=== PATIENT | male | born 1990 | race Caucasian/White ===

== ENCOUNTER 2023-12-07 11:41 | Emergency (ER) | payer OTHER, SELFPAY ==
[2023-12-07 11:56] VITALS: BP 149/95; PULSE 58; RESP 18; TEMP 36.4; O2SAT 100; BMI 22.2
--- NOTE | 2023-12-07 12:10 | CT_ITS ---
[address] [address] Patient Name: ELIER COMBS MRN: [id number] date: 1990 Sex: M Assigned Patient Location: ER Current Patient Location: ED.MAIN Accession/Order Number: [id number] Exam Date: 12/07/2023 12:25 Report Date: 12/07/2023 12:49 At the request of: TREVON DURON Procedure: CT abdomen pelvis wo con EXAM: CT abdomen pelvis wo con HISTORY: kidney stones COMPARISON: None TECHNIQUE: CT abdomen and CT pelvis studies were performed without the use of intravenous contrast. Multiple axial images were obtained. Reformatted coronal and sagittal images were obtained and reviewed. FINDINGS: Abdomen: Visualized lower lung lyles appear grossly unremarkable. Views of the liver and spleen fail to demonstrate evidence of focal mass in either organ. Gallbladder, pancreas and adrenal glands appear grossly unremarkable. Food debris and fluid within the stomach. Mild wall thickening of the distal stomach suggested, consider mild gastritis or gastroenteritis. Correlate to exclude any possibility of early and/or mild gastric outlet obstruction. Bowel loops appear grossly unremarkable. Visualized vascular structures appear grossly intact. No obvious of adenopathy in the retroperitoneum. No obvious renal mass or obstructive uropathy. No evidence of renal or ureteral calculus. Pelvis: No evidence of ureteral or bladder calculus. No evidence of obstructive uropathy. No obvious bladder mass or wall thickening. Prostate gland is grossly within normal limits for size with small associated calcification noted. Mild degree of free intraperitoneal fluid noted posteriorly. Perirectal fat planes appear grossly intact. Bowel loops appear grossly unremarkable. Visualized vascular structures appear grossly intact. No evidence of adenopathy. The appendix is visualized and appears unremarkable in size, no evidence of associated wall thickening. Increased luminal density in the appendix may represent appendicoliths and/or dense feces. No evidence of associated inflammation. No evidence of appendicitis. Bony structures appear grossly intact. CT/CT abdomen pelvis wo con IMPRESSION: CT abdomen and CT pelvis studies demonstrate findings which can be correlated for mild gastritis or gastroenteritis as described. Correlate to exclude any possibility of early and/or mild gastric outlet obstruction. Small amount of free intraperitoneal fluid in the pelvis posteriorly. No evidence of appendicitis. Electronically authenticated by: HERMANN NGUYEN Date: 12/07/2023 12:49
[2023-12-07 12:21] LABS: Basophils Percent Auto 0.3 % (0.2-2.0); Eosinophils Absolute Auto 0.6 10^3/uL (0.0-0.7); Eosinophils Percent Auto 5.6 % (0.9-7.0); Hematocrit 43.8 % (42.0-54.0); Hemoglobin 14.6 g/dL (14.0-18.0); Immature Granulocytes Abs Auto 0.14 10^3/uL (0.00-0.03); Immature Granulocytes Pct Auto 1.4 % (0.0-0.5); Lymphocytes Absolute Auto 2.4 10^3/uL (1.2-3.8); Lymphocytes Percent Auto 23.4 % (20.5-60.0); Mean Corpuscular HGB Conc 33.3 g/dL (29.9-35.2); Mean Platelet Volume 10.8 fL (9.5-13.5); Monocytes Absolute Auto 1.1 10^3/uL (0.3-0.8); Monocytes Percent Auto 11.2 % (1.7-12.0); Neutrophils Absolute Auto 5.9 10^3/uL (1.4-6.5); Neutrophils Percent Auto 58.1 % (43.0-75.0); Platelet Count 430 10^3/uL (150-450); Red Blood Count 4.71 10^6/uL (4.70-6.10); Red Cell Distribution Width 12.7 % (11.0-15.0); White Blood Count 10.1 10^3/uL (4.0-11.0)
[2023-12-07 12:39] LABS: Alanine Aminotransferase 165 U/L (16-63); Albumin Globulin Ratio 0.9; Albumin Level 3.6 g/dL (3.4-5.0); Alkaline Phosphatase 65 U/L (46-116); Anion Gap 12.7; Aspartate Amino Transferase 105 U/L (15-37); BUN Creatinine Ratio 17.6; Bilirubin Total 0.4 mg/dL (0.2-1.0); Calcium 9.2 mg/dL (8.5-10.1); Carbon Dioxide 30.3 mmol/L (21.0-32.0); Chloride 103 mmol/L (98-107); Estimated GFR (African America >60 (>=60); Estimated GFR (Non-African Ame >60 (>=60); Globulin 3.9 g/dL; Glucose 104 mg/dL (74-106); Sodium 142 mmol/L (136-145); Total Protein 7.5 g/dL (6.4-8.2)
[2023-12-07] MEDS: HYDROMORPHONE HCL 1 MG/ML CARTRIDGE IVP (12:46)
[2023-12-07] MEDS: KETOROLAC TROMETHAMINE 30 MG/ML VIAL IVP (12:46)
--- NOTE | 2023-12-07 12:54 | ED.ABDPAIN1 ---
HPI - Abdominal Pain General Chief Complaint: Abdominal Pain Stated Complaint: abdominal pain Time Seen by Provider: 12/07/23 12:09 Source: patient Mode of arrival: walk-in Limitations: no limitations History of Present Illness HPI narrative: patient here complaining of abdominal pain. He says he felt fine yesterday and ate a very large meal last night. He says sometimes he just eats too much. However he slept fine all evening. He woke up this morning was good was having a bolster his started having intense abdominal cramping on the left and the right. Does not have any back or flank pain. He did have a suspicious history of kidney stones. He's not had any problems urinating with hematuria dysuria or urinary frequency and discomfort. The Emergency Room was extremely busy I ordered some laboratory testing on him and some medication including a CT scan. Related Data Allergies Allergy/AdvReac Type Severity Reaction Status Date / Time Iodinated Contrast Media Allergy Unknown Verified 12/07/23 11:56 [facility] Social History Smoking status: Current every day smoker Exam Narrative Exam Narrative: awake alert moving about on the cart appears to be uncomfortable. Is not lying still. He is afebrile. I saw him after the CT scan was complete. His white blood cell count as noted below was essentially normal. On examination abdomen is flat soft supple no guarding rebound rigidity or peritoneal findings. No tenderness at McBurney's point. Lopez's sign is negative. There is no increase in bowel sounds. There is no peritoneal discomfort. Rebound is negative. His lungs are clear and heart sounds were normal. Constitutional Vital Signs, click to edit/add: Last Vital Signs Temp 97.6 F 12/07/23 11:56 Pulse 58 L 12/07/23 11:56 Resp 18 12/07/23 11:56 BP 149/95 H 12/07/23 11:56 Pulse Ox 100 12/07/23 11:56 O2 Del Method Room Air 12/07/23 11:56 Course Vital Signs Vital signs: Vital Signs Temperature 97.6 F 12/07/23 11:56 Pulse Rate 58 L 12/07/23 11:56 Respiratory Rate 18 12/07/23 11:56 Blood Pressure 149/95 H 12/07/23 11:56 Pulse Oximetry 100 12/07/23 11:56 Oxygen Delivery Method Room Air 12/07/23 11:56 Temperature 97.6 F 12/07/23 11:56 Pulse Rate 58 L 12/07/23 11:56 Respiratory Rate 18 12/07/23 11:56 Blood Pressure 149/95 H 12/07/23 11:56 Pulse Oximetry 100 12/07/23 11:56 Oxygen Delivery Method Room Air 12/07/23 11:56 MDM - Abdominal Pain MDM Narrative Medical decision making narrative: CT scan does not show any acute emergency condition but is consistent with gastroenteritis. This consistent with his increased bowel sounds. His temperature is normal, white count normal and I believe this more functional discomfort since he had a normal bowel movement this morning. I will place him on Levsin and clear fluids only for the next forty-eight hours Lab Data Labs: Lab Results 12/07/23 Range/Units 12:08 WBC 10.1 (4.0-11.0) 10^3/uL RBC 4.71 (4.70-6.10) 10^6/uL Hgb 14.6 (14.0-18.0) g/dL Hct 43.8 (42.0-54.0) % MCV 93.0 (80.0-94.0) fL MCH 31.0 (25.9-34.0) pg MCHC 33.3 (29.9-35.2) g/dL RDW 12.7 (11.0-15.0) % Plt Count 430 (150-450) 10^3/uL MPV 10.8 (9.5-13.5) fL Neut % (Auto) 58.1 (43.0-75.0) % Lymph % (Auto) 23.4 (20.5-60.0) % [place] % (Auto) 11.2 (1.7-12.0) % Eos % (Auto) 5.6 (0.9-7.0) % Baso % (Auto) 0.3 (0.2-2.0) % Neut # (Auto) 5.9 (1.4-6.5) 10^3/uL Lymph # (Auto) 2.4 (1.2-3.8) 10^3/uL [place] # (Auto) 1.1 H (0.3-0.8) 10^3/uL Eos # (Auto) 0.6 (0.0-0.7) 10^3/uL Baso # (Auto) 0.0 (0.0-0.1) 10^3/uL Abs Immat Gran (auto) 0.14 H (0.00-0.03) 10^3/uL Imm/Tot Granulo (auto) 1.4 H (0.0-0.5) % Sodium 142 (136-145) mmol/L Potassium 4.0 (3.5-5.1) mmol/L Chloride 103 (98-107) mmol/L Carbon Dioxide 30.3 (21.0-32.0) mmol/L Anion Gap 12.7 BUN 16.0 (7.0-18.0) mg/dL Creatinine 0.91 (0.70-1.30) mg/dL Est GFR ( Amer) >60 (>=60) Est GFR (Non-Af Amer) >60 (>=60) BUN/Creatinine Ratio 17.6 Glucose 104 (74-106) mg/dL Calcium 9.2 (8.5-10.1) mg/dL Total Bilirubin 0.4 (0.2-1.0) mg/dL AST 105 H (15-37) U/L ALT 165 H (16-63) U/L Alkaline Phosphatase 65 (46-116) U/L Total Protein 7.5 (6.4-8.2) g/dL Albumin 3.6 (3.4-5.0) g/dL Globulin 3.9 g/dL Albumin/Globulin Ratio 0.9 Discharge Plan Discharge Chief Complaint: Abdominal Pain Clinical Impression: Abdominal pain Patient Disposition: Home, Self-Care Time of Disposition Decision: 13:08 Additional Instructions: Levsin as needed for discomfort not to exceed four tablets per day/clear fluids for 24-48 hours, then slowly improving diet Stand Alone Forms: Portal Instructions Referrals: Physician,Non-Staff, MD [Primary Care Provider] - 1 week
== END 2023-12-07 13:22 | disposition home or self-care (01) ==
PROVIDERS: Emergency Provider Emergency Medicine Emergency Medical Services
DX: R10.9 Unspecified abdominal pain (principal); F17.210 Nicotine dependence, cigarettes, uncomplicated
CPT/HCPCS: 36415; 74176; 80053; 85025; 96374; 96375; 99284; J1170; J1885

== ENCOUNTER 2023-12-08 04:04 | Emergency (ER) | payer OTHER, SELFPAY ==
[2023-12-08 05:34] VITALS: BMI 22.1
--- OUTSIDE RECORDS SUMMARY | 2023-12-08 05:53 | XMS_ITS | CCD ---
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 [address] [place] [id number] Patient Name: BRAULIO COMBS : 1990 Sex: M Age: Race: White Pt. Location: Patient Status: O Ordered Date: 03/05/2019 1:15:00 PM Completed Date: 04/15/2019 12:39 PM Requesting Provider: ARGENTINA YO Attending Provider: ARGENTINA YO Report Copy To: UNKNOWN, PHYSICIAN Signs & Symptoms: S06.4X0D Epidural hemorrhage w/o loss of consciousness, subs encntr I10 History: Keli TEAGUE [id number] VALID 03/25/19-06/23/2019 [id number] JY PER FAX Comments: follow up EDH, IPH Exam: CT BRAIN WO CONTRAST CT BRAIN WO CONTRAST 04/15/2019 12:39 PM EDT SIGNS AND SYMPTOMS: S06.4X0D Epidural hemorrhage w/o loss of consciousness, subs encntr I10 TECHNOLOGIST COMMENTS: Follow up brain bleed. QUESTION FOR THE RADIOLOGIST: follow up EDH, IPH PROTOCOL: Axial CT images of the head were obtained without IV contrast. TECHNIQUE:Multi-detec tor CT axial slices of the brain were obtained without IV contrast. Helical,sagittal, coronal, and 3-D reconstructions were performed and viewed on a separate workstation. COMPARISON: March 05, 2019 FINDINGS: There is no shift of the midline structures, acute intracranial bleeding, mass effects, or evidence of acute ischemia. The ventricular system is normal in size. The brainstem and the cerebellum are unremarkable. There is interval complete resolution of previously seen right frontotemporal small epidural hematoma seen in the prior study and near complete resolution of the left temporal intraparenchymal hemorrhage with small 5 mm residual focus of hemorrhage seen in the left temporal lobe in axial image 49. The visualized intraorbital contents, the visualized paranasal sinuses, and the infratemporal soft tissues show no acute abnormality. The osseous structures in the skull base and the calvarium show no abnormality apart from the nondisplaced right temporoparietal fissure fracture. IMPRESSION: Right frontotemporal epidural hematoma has resolved. Marked improvement of the left temporal intraparenchymal hemorrhage and tiny 5 mm residual focus of hemorrhage is still visible. Electronically signed by:Luis Alberto Onofre. Transcribed by: [email or web address], User Resident: Electronically Signed by: LUIS ALBERTO ONOFRE @ 04/15/2019 01:58 PM Normal [facility] Comment on above: Order Comment: johanne w up ED, [facility] CT BRAIN WO CONTRASTon 03-05 CT BRAIN WO CONTRAST [facility] Department of Radiology [address] [place] [id number] Patient Name: BRAULIO COMBS : 1990 Sex: M Age: Race: White Pt. Location: [id number] Patient Status: O Ordered Date: 03/05/2019 8:30:00 AM Completed Date: 03/05/2019 08:33 AM Requesting Provider: ARGENTINA YO Attending Provider: JOSH REYNOSO Report Copy To: Signs & Symptoms: Bleed History: Patient history not available Comments: Progression of Known Bleed Exam: CT BRAIN WO CONTRAST CT BRAIN WO CONTRAST 03/05/2019 8:33 AM EDT SIGNS AND SYMPTOMS: Bleed TECHNOLOGIST COMMENTS: s/p fall x 1 day ago dizziness and left frontal headache QUESTION FOR THE RADIOLOGIST: Progression of Known Bleed PROTOCOL: Axial CT images of the head were obtained without IV contrast. TECHNIQUE:Multi-detec tor CT axial slices of the brain were obtained without IV contrast. Helical,sagittal, coronal, and 3-D reconstructions were performed and viewed on a separate workstation. Appropriate CT dose lowering techniques were utilized. COMPARISON: CT head March 04, 2019 FINDINGS: Right temporal frontal epidural hematoma with a maximal width of approximately 7 mm, unchanged. The left temporal intraparenchymal and subarachnoid hemorrhage with surrounding edema, with local mass effect is relatively unchanged. No shift of the midline structures. Right temporal bone nondisplaced fracture. Small focus of intracranial air adjacent to the fracture. IMPRESSION: Right temporo frontal epidural hematoma, stable in appearance. Left temporal intraparenchymal hemorrhage with surrounding edema and local mass effect is relatively unchanged. No shift of the midline structures or large mass effect. Right temporal nondisplaced fracture. Approved by:Mirela Ramos on 03/05/2019 9:35 AM EDT. I, Luis Alberto Onofre, have reviewed the images and report and concur with these findings. Electronically signed by:Luis Alberto Onofre. Transcribed by: [email or web address], User Resident: MIRELA RAMOS Electronically Signed by: LUIS ALBERTO ONOFRE @ 03/05/2019 09:58 AM I personally read this/these film(s) with this resident Normal [facility] Comment on above: Order Comment: Progr ession of Known Bleed History and Physicalon 03-05 History and Physical MR#: [id number] [facility] Pt. Name: Braulio Combs Admitted: 03/04/2019 Date of : 1990 Attending Physician: Josh Reynoso MD Room #: [id number] Discharge Date: HISTORY AND PHYSICAL SERVICE: Trauma Surgery. CHIEF COMPLAINT: Head injury. HISTORY OF PRESENT ILLNESS: This is a 28-year-old male, status post fall from 03/03/2019 at around 5:30 in the morning. The patient states that he had climbed up to the attic via the ceiling staircase and was attempting to raise the staircase trapdoor and fell out of the door onto his head to the concrete basement below. He said he fell about 12 feet, although he does not remember the events. His girlfriend found him on the floor, brought him to bed. He fell asleep until 1 o'clock in the afternoon. After waking up the patient reports feeling unwell and did eventually vomit multiple times. He finally went to the emergency department at an outlying facility at around 2 p.m. on 03/04/2019. After initial workup there, he was found to have a temporal bone fracture on the right side with underlying epidural hematoma/subdural hematoma. He was sent to [facility] for neurosurgical evaluation. The patient currently denies no nausea, vomiting due to recent medication administration. He does report some visual disturbances of his right eye, particularly a whitish halo around the lateral periphery, which has gotten better, but not completely gone away. He denies any other soft tissue injuries including neck, arms, legs, abdominal, chest or back. He has not been able to tolerate much oral intake. He denies any numbness or tingling or weakness. PAST MEDICAL HISTORY: The patient reports episode of previous head injury about a couple of years ago requiring hospitalization, but no surgery. The patient reports a cardiac workup requiring echocardiogram and pulmonary artery catheter placement for supposed pulmonary artery hypertension, which was a never properly confirmed as an official diagnosis and patient claims never needed additional followup. PAST SURGICAL HISTORY: Laceration repair to the right foot from previous injury. SOCIAL HISTORY: Drinks about 5 beers or shots per day, although has not drank in the last 2 days. Active smoker. Occasional pot use. No other illicit drugs. FAMILY HISTORY: Father's side has blood disorder. ALLERGIES: Iodine contrast. MEDICATIONS: None. The patient is supposed to take magnesium for his heart, but does not. REVIEW OF SYSTEMS: As listed above. PHYSICAL EXAMINATION: VITAL SIGNS: Temperature 97.6, heart rate 52, respiratory rate 11, blood pressure 125/76, O2 saturation 99% on room air. GENERAL: Alert and oriented x3, in no acute distress. HEENT: Normocephalic, positive contusion to the right superior temporal region. No obvious laceration or signs of bleeding. Pupils are equally round and reactive to light and accommodation. Extraocular muscles intact. Mucous membranes are dry. Cranial nerves II through XII grossly intact. Positive right-sided hemotympanum. Left side is clear. Dentition intact. NECK: Trachea is midline. No posterior cervical tenderness. No JVD. No cervical crepitus. CARDIAC: Sinus bradycardia with occasional PVCs. Normotensive. PULMONARY: Clear to auscultation bilaterally. Normal work of breathing. GI: Soft, nontender, nondistended. Positive bowel sounds. EXTREMITIES: No extremity deformities or lacerations or bruises. No tenderness to palpation. Appropriate range of motion x4. BACK: No posterior spinal step-offs or tenderness. SKIN: Warm and dry. NEURO: No focal neurological deficits. LABORATORY DATA: Labs were reviewed and grossly normal. IMAGING DATA: CT of the head and neck was done at outlying facility. CT of the neck is grossly negative for traumatic injuries. CT head demonstrates a right temporal skull fracture with an adjacent subdural subarachnoid and epidural hematoma. There is no displacement of the fracture. ASSESSMENT: This is a 28-year-old male, status post fall onto head from 12 feet high also intoxicated at that time. Currently has a right temporal skull fracture with underlying epidural/subdural hematoma. Currently neurologically intact. However, there is associated hemotympanum on the right side and recently complaining of headaches and vomiting. PLAN: Admit with neurosurgical consult. Close neurological checks and possible repeat CT scan. However, 24-hour window of repeat evaluation has passed. We will discuss need for seizure prophylaxis. Keep on antinausea medication and pain control medications as well. PT and OT for functional evaluation. Monitor for signs of Sobia syndrome. Discuss need for ophthalmology or ENT consult. Electronically Signed by: Josh Reynoso MD 03/05/2019 11:26 A Josh Reynoso MD I personally saw this patient on the day of the encounter, performed the ly portion(s) of the service and participated in the management and confirm the resident's documentation. Please note there may be an additional personal documentation from me. Date Dict: 03/04/2019/09:04 P/Joaquina Leigh MD Date Trans: 03/05/2019 05:24 A/durga [id number] Normal [facility] BASIC METABOLIC PANELon 04-0 Calcium [Mass/Vol] 9.7 mg/dL Normal 8.6-10.3 [facility] Comment on above: Order Comment: if no t done in ED No: Do not add to previous draw Performed By: #### 0 0071, [id number] #### [facility] [address] [place] [address], [place] Chloride [Moles/Vol] 96 mmol/L Low 98-107 [facility] Comment on above: Order Comment: if no t done in ED No: Do not add to previous draw Performed By: #### 0 0071, [id number] #### [facility] [address] [place] [address], [place] CO2 [Moles/Vol] 30 mmol/L Normal 21-31 [facility] Comment on above: Order Comment: if no t done in ED No: Do not add to previous draw Performed By: #### 0 0071, [id number] #### [facility] [address] [place] [address], [place] Creatinine [Mass/Vol] 0.93 mg/dL Normal 0.70-1.30 [facility] Comment on above: Order Comment: if no t done in ED No: Do not add to previous draw Performed By: #### 0 0071, [id number] #### [facility] [address] [place] [address], [place] GFR/1.73 sq M predicted among blacks MDRD (S/P/Bld) [Vol rate/Area] mL/min/{1.73_m2} Normal >60 [facility] Comment on above: Order Comment: if no t done in ED No: Do not add to previous draw Performed By: #### 0 0071, [id number] #### [facility] [address] [place] [address], [place] GFR/1.73 sq M predicted among non-blacks MDRD (S/P/Bld) [Vol rate/Area] mL/min/{1.73_m2} Normal >60 [facility] Comment on above: Order Comment: if no t done in ED No: Do not add to previous draw Performed By: #### 0 0071, [id number] #### [facility] [address] [place] [address], [facility] Glucose [Mass/Vol] 106 mg/dL High 70-100 [facility] Comment on above: Order Comment: if no t done in ED No: Do not add to previous draw Performed By: #### 0 0071, [id number] #### [facility] [address] [place] [address], [place] Potassium [Moles/Vol] 4.5 mmol/L Normal 3.5-5.1 [facility] Comment on above: Order Comment: if no t done in ED No: Do not add to previous draw Performed By: #### 0 0071, [id number] #### [facility] [address] [place] [address], [facility] Sodium [Moles/Vol] 134 mmol/L Low 136-145 [facility] Comment on above: Order Comment: if no t done in ED No: Do not add to previous draw Performed By: #### 0 0071, 96035 #### [facility] [address] [place] [address], [facility] Urea nitrogen [Mass/Vol] 18 mg/dL Normal 7-25 [facility] Comment on above: Order Comment: if no t done in ED No: Do not add to previous draw Performed By: #### 0 0071, 15249 #### [facility] [address] [place] [address], [facility] CBC COMPLETE BLOOD COUNTon 0 - Erythrocyte distribution width (RBC) [Ratio] 14.1 % Normal 11.5-15.0 [facility] Comment on above: Order Comment: if no t done in ED No: Do not add to previous draw Performed By: #### 5 0608 #### [facility] [address] [place] [address], [facility] Hematocrit (Bld) [Volume fraction] 43.2 % Normal 39.0-50.0 [facility] Comment on above: Order Comment: if no t done in ED No: Do not add to previous draw Performed By: #### 5 0608 #### [facility] [address] [place] [address], [facility] Hemoglobin (Bld) [Mass/Vol] 15.1 g/dL Normal 13.0-17.0 [facility] Comment on above: Order Comment: if no t done in ED No: Do not add to previous draw Performed By: #### 5 0608 #### [facility] [address] [place] [address], [facility] MCH (RBC) [Entitic mass] 32.4 pg Normal 27.0-33.0 [facility] Comment on above: Order Comment: if no t done in ED No: Do not add to previous draw Performed By: #### 5 0608 #### [facility] [address] [place] [address], [facility] MCHC (RBC) [Mass/Vol] 35.0 g/dL Normal 32.0-35.0 [facility] Comment on above: Order Comment: if no t done in ED No: Do not add to previous draw Performed By: #### 5 0608 #### [facility] [address] [facility] [place] [address], [facility] MCV (RBC) [Entitic vol] 92.7 fL Normal 82.0-98.0 [facility] Comment on above: Order Comment: if no t done in ED No: Do not add to previous draw Performed By: #### 5 0608 #### [facility] [address] [place] [address], [facility] Nucleated RBC/100 WBC (Bld) [Ratio] 0 % Normal 0-0 [facility] Comment on above: Order Comment: if no t done in ED No: Do not add to previous draw Performed By: #### 5 0608 #### [facility] [address] [place] [address], [facility] PLAT CNT 364 10*3/uL Normal 150-[address] [facility] Comment on above: Order Comment: if no t done in ED No: Do not add to previous draw Performed By: #### 5 0608 #### [facility] [address] [place] [address], [facility] RBC (Bld) [#/Vol] 4.66 10*6/uL Normal 4.20-5.70 [facility] Comment on above: Order Comment: if no t done in ED No: Do not add to previous draw Performed By: #### 5 0608 #### [facility] [address] [place] [address], [facility] WBC (Bld) [#/Vol] 9.76 10*3/uL Normal 4.00-10.60 [facility] Comment on above: Order Comment: if no t done in ED No: Do not add to previous draw Performed By: #### 5 0608 #### [facility] [address] MAGNESIUM BLOODon 03-04-2019 Magnesium [Mass/Vol] 2.4 mg/dL Normal 1.9-2.7 [facility] Comment on above: Order Comment: if no t done in ED No: Do not add to previous draw Performed By: #### 0 0071, [id number] #### [facility] [address] Encounters Encounter Date Encounter Type Care Provider Facility Start: 02-22-2023 End: 02-22-[address] NONE LISTED REQUEST Facility: Start: 03-04-2019 End: 03-06-2019 Evaluation and management of inpatient REFERRED SELF Facility:[facility] Payers Date Payer Category Payer Unknown [id number] 1990 Unknown [id number] 1961 Medicaid [id number] Summary Purpose Family History No Family History Records FoundNo Family History Records FoundNo Family History Records Found Advance Directives No Advanced Directives Records FoundNo Advanced Directives Records FoundNo Advanced Directives Records Found Hospital Course Note MR#: [id number] [facility] Pt. Name: Braulio Combs Admitted: 03/04/2019 Discharged: 03/06/2019 Date of : 1990 Physician: Josh Reynoso MD DISCHARGE SUMMARY DISCHARGE ATTENDING: Josh Reynoso M.D. PRINCIPAL DIAGNOSIS: Right temporal fracture and intraparenchymal hemorrhage status post fall. SECONDARY DIAGNOSIS: Included prior history of concussion. SUMMARY OF HOSPITAL COURSE: The patient is a 28-year-old male who came in as a trauma consult. He had a fall from an attic at his home on Sunday evening. He was attempting to close the attic door and ended up falling through onto his head. He decided to stay home until around 1 p.m. in the afternoon on Sunday and was seen in [facility] due to a severe headache. At [facility], he had a 3D CT C-spine without contrast and also a CT brain without contrast and was thus transferred to [facility] for higher level of care. Upon admission to [facility], he had a repeat CT brain without contrast and wa (more content not included)... Additional Source Comments (unrecognized sect ion and content) No Status Records FoundNo Status Records FoundNo Status Records Found INFORMATION SOURCE (unrecogn ized section and content) DATE CREATED AUTHOR 07/31/2019 [facility] DATE CREATED AUTHOR AUTHOR'S ORGANIZ ATION 07/15/2021 [facility] DATE CREATED AUTHOR AUTHOR'S ORGANIZ ATION 02/27/2023 [facility] FOR RECORDS PERTAINING TO PATIENTS WHO ARE OR HAVE BEEN ENROLLED IN A CHEMICAL DEPENDENCY/SUBSTANCEABUSE PROGRAM, SOME INFORMATION MAY BE OMITTED. This clinical summary was aggregated from multiple sources. Caution should be exercised in using it in the provision of clinical care. This summary normalizes information from multiple sources, and as a consequence, information in this document may materially change the coding, format and clinical context of patient data. In addition, data may be omitted in some cases. CLINICAL DECISIONS SHOULD BE BASED ON THE PRIMARY CLINICAL RECORDS. [facility]. provides no warranty or guarantee of the accuracy or completeness of information in this document.
[2023-12-08 05:58] LABS: Anion Gap 14.8; Chloride 99 mmol/L (98-107); Glucose 107 mg/dL (74-106); Potassium 3.8 mmol/L (3.5-5.1); Sodium 139 mmol/L (136-145)
[2023-12-08 05:59] LABS: Alanine Aminotransferase 119 U/L (16-63); Albumin Globulin Ratio 0.9; Albumin Level 3.7 g/dL (3.4-5.0); Alkaline Phosphatase 71 U/L (46-116); Aspartate Amino Transferase 40 U/L (15-37); Bilirubin Direct 0.1 mg/dL (0.0-0.2); Bilirubin Total 0.6 mg/dL (0.2-1.0); Calcium 9.4 mg/dL (8.5-10.1); Estimated GFR (African America >60 (>=60); Estimated GFR (Non-African Ame >60 (>=60); Total Protein 7.7 g/dL (6.4-8.2)
[2023-12-08 06:00] LABS: Hematocrit 44.8 % (42.0-54.0); Mean Corpuscular HGB Conc 33.5 g/dL (29.9-35.2); Mean Corpuscular Hemoglobin 31.3 pg (25.9-34.0); Mean Corpuscular Volume 93.5 fL (80.0-94.0); Mean Platelet Volume 10.8 fL (9.5-13.5); Platelet Count 445 10^3/uL (150-450); Red Blood Count 4.79 10^6/uL (4.70-6.10); Red Cell Distribution Width 12.7 % (11.0-15.0); White Blood Count 13.5 10^3/uL (4.0-11.0)
[2023-12-08 06:02] LABS: Neutrophils Percent Auto 66.9 % (43.0-75.0)
[2023-12-08 06:03] LABS: Basophils Percent Auto 0.1 % (0.2-2.0); Eosinophils Absolute Auto 0.6 10^3/uL (0.0-0.7); Eosinophils Percent Auto 4.3 % (0.9-7.0); Lymphocytes Absolute Auto 2.5 10^3/uL (1.2-3.8); Lymphocytes Percent Auto 18.2 % (20.5-60.0); Monocytes Absolute Auto 1.3 10^3/uL (0.3-0.8); Monocytes Percent Auto 9.5 % (1.7-12.0)
[2023-12-08 06:04] LABS: Immature Granulocytes Abs Auto 0.13 10^3/uL (0.00-0.03)
== END 2023-12-08 06:06 | disposition home or self-care (01) ==
LOC: ER 05:52
PROVIDERS: Emergency Provider Internal Medicine
DX: K52.9 Noninfective gastroenteritis and colitis, unspecified (principal); K29.70 Gastritis, unspecified, without bleeding; F17.210 Nicotine dependence, cigarettes, uncomplicated
CPT/HCPCS: 36415; 80048; 80076; 83690; 85025; 96361; 96374; 96375; 99284; J1200

== ENCOUNTER 2023-12-08 08:22 | Emergency (ER) | payer OTHER, SELFPAY ==
[2023-12-08 08:26] VITALS: BP 153/105; PULSE 86; RESP 18; TEMP 36.9; O2SAT 99; BMI 22.2
--- OUTSIDE RECORDS SUMMARY | 2023-12-08 08:34 | XMS_ITS | CCD ---
Author Name Unknown Address [address] [place] [address] [facility] [address] [place] [address] Organization [facility] Care Team Providers Care Emergency Physician Name Role Phone SELF, REFERRED Referring Unavailable SELF, REFERRED Primary Care Unavailable JOSH REYNOSO Attending Unavailable JOSH REYNOSO Admitting Unavailable REQUEST, DR CABRERA LISTED Primary Care Unavaila ble DIAB ., SOTO Admitting Unavailable DIAB .SOTO Attending Unavailable DIAB ., SOTO Consulting Unavailable Allergies Allergy Classification Reported Allergen(s) Allergy Type Date of Onset Reaction(s) Facility (2 sources) Iodinated Contrast- Oral and IV Dye Drug allergy (disorder) 03-04-2019 [facility] Repository Problems Active Problems Problem Classification Problem [...] NEGATIVE FOR GROUP A STREPTOCOCCUS. Normal [facility] Comment on above: Performed By: #### S SCRN GRASTCX #### [facility] Laboratory [address] [place], [place] [address] Dr. Mary Marks STREPT SCREENon 02-22-2023 STREP SCREEN A Negative Normal NEGATIVE [facility] Comment on above: Performed By: #### S SCRAbiel, GRASTCX #### [facility] [address] [place] [address] Dr. Mary Marks Coding Summary.on 07-14-2021 Coding Summary. CD:[id number] G h0bWw+PGhlYWQ+BU1VJHQ dN98ibJJoeH0FN2eBKB5K BPXQWOQQCU2IVH9bbUU4W RajT2AzchFc BkrnkNYgJH75IOk4TXY7e IrkMIgobG0uhQGsP9p8Pv LaNY80iI09TFdxTDQsPpP 3LjZpbjsgbWFy K1avKlWyiHRhWvy+PHRhY mxlIHdpZHRoPScxMDAlJy ZqxAfsGY3zYd3vLFXeNLT vbGxhcHNlOiBj n8zjUFMvGYkeOF6lyHhrV 2JkbKU7FCPvd7b6Rd42nM I+FLDbQZR0dZjrFBsex47 5IfMnl6jbAQH1 rNOeLVssMGO4T52ja6V3L IJyODXdSPU0iUA6vN4vwF jjgcbiU8EwoOEmLbG8JTJ 5sGUjoS3ciUfe nntxwC6lXrz+F56ANZ9QI VBPDB8TEre4P9MfRvrvuT I+OQ91SVOcZM90eKKxsEF ua5ywkPh1YnHc OEBiBYW4mAgnQNcmq4OcJ IQsB08wvVEhp7Z0AKPvzT bfyELlAePhjNK6pM7dXWi wuyxou4kjnxnk Fyphn0nrfc30mH11C68zC OnjCFOvOKO3PQEuLKMrkA zfmk5zwC9jAg0+WUfqh1r pp7akbBf1EpCc JKLcnbUkoGicQYI1o6SwE q29K8MdsLmiw3PrTju5ef 31pVCqi7N2vHV1WMajJAL vmJ3fZLmmGfY9 DYBhEaShwC69rLTsERjwB p3taZaicVjwOZ4iZPBxqu riMJYhzQ7bJXYdsKGkdCq hSI1eOATtsqav h201QrLoTEP0VLAmrSTpP 1IywU3pJeNkBCRcAFKeX0 TgnERuIIisM814FPbaDyO 5PBEayjTcZ7Nh OCJvjZntMhF4h5G1To4Gf 7ZnmfyyLTU4UJndVNA4Zd C0PvPwHjW1Z2RqOpb2ETD ccGuzMC1vF6Az PSSpneycyoiixRZ3QSRnV FDjgZ91uUZlUFmuCm8un0 B8r839XLXyISLncF01Gm1 udDogMTBwdCBU tP1qgpkfi3ijxtnvOfYcU BIeSOz4VQd8KRRknOkyHn LoXRG7YsY1NNE9yKIbzC6 skDihcqhlwV5y Oyc+A11npH1rTFF5MSS7i mdrIAQokdJfPO59QS79W6 RyPjwvdGFibGU+PGRpdiB rgMfsDD1nSaPy w7iuu6PnLFmfO8JwSRNmR WawUst5GLSpPFU2sOP9sH 4mWINfFTsnw4R1oXI2I0L eqmTdro0ft6ko EEIxVQluS20uaAHxz1C5R VLtaVH0YAVmuGayNePsqG 93Oyc+RZKgvDyar3ArXyu xn2rhf6wcqZi3 XaNsCHLhnrGarExbASA6r 0MoHj45X02hKVcsUOPfZK KfRDGyVJShmSbitm8rdV5 wIi8+PGNvbCB3 jAL0kH9kQTFfEmA2UKcyY 135UuHxsZZeZydyz0vwx0 ssbHv5DoUtQSVqsaGeeCm wITB6b7SgYw55 V78sLTrmCOZdRWEjJLXrY PZvaHyesd5ukA0hPc8+PC 2qv3twdv29kI92nYE+PHR iRAI5nCeuWAbs FFPmfD5bHOjvXlO5YIBzZ sLopS05kOSpMRtyGj3wjW cgrUtzIX3uABUfzthkn59 3KvOfr6gmIXLo hXGiXWlqFQH5P63dv4B6C GRoQAElKYM4iDB1qX7krJ lnbjogbGVmdDsgdmVydGl xYIogCYxoV769 IHRvcDsnPlBhdGllbnQgT sBaGCb5K0AcFna7CQCujO shAZ2ueXNoBBwmVx3pxIp cxMmdPD4aLFQr svtyc409WwKxp0kbDFSci BYoORirVUM4A29bn4S4MV YpHLZdKVS6rFR1bX8psOx nbjogbGVmdDsg dlZdcAtuQImaBXhdX702Q HRvcDsnPkJpcnRoIERhdG X6CK92OS77kVDbu9V1eZW 1W8NvSELcfwts svacqRI8KRRdRXKovH30H c0jgOtrNd8iQOHjMET5QG DbgBLdZ1CurR6vLoNeDVE rCVZcD3FqxFFj FXgcQ281FEtuKmY5CDYbm qGeC2OlMAWnmUwlEkR5l3 V1Tj4MX6X3KS77GY45pYR qy8O6hCZ8F9Ac MADnslbqopyssJB0SJLlN INuiH04Xf3fbDwiIc5lPU IgRLU9KENcvEPfP0XpgE5 yOiAjMDAwMDAw X2XkrKNvAQhuT695PNcbS hM3XUGojnBgZ7CtVXAxeM nnKkH8r3N6Ef3XDOx6EF5 8LQ36tHPye8F9 mUI4N7GfAJEtrksnfhfpf BZ4QJKbZLLjgO30Gs9plG ymTh1bMWOyGIG2MKHzgQS yK1UodL8fXsFx VIAoHENmH5QjeCMlIVeeC 818XJpnIhY4SKEszpDzI7 PqFRQatVhvEtL4a6E7Th2 RAXXpFN42ZOD4 cPK6CP82WF23L3WhBnize GFibGU+PHRhYmxlIHdpZH RoPScxMDAlJyBzdHlsZT0 aYm9pUKQrDOXu gXeqyYQmJzPrf2lqKCBwT FtiOQ9hvTdmJ9InyHW3XT Ceg1n7Ud14L14aM0DisUS +GKDczSU5wGM0 qP9rMuUiGkG2AZycN035K wIaqJLqAttys6zcj3xpiE w8PgC8MGHoxfBbpBfgCIA 2p8YdBj42O50g IHdpZHRoPSIxNSUiIHZhb Pxfuj4ddY8fRs7+PGNvbC H5rGS3hS4zHmNhUmB5XCj bC508GoLhtFVg Yqgva4ibj1iqjIy2TvEfN KXyrgLucOlkZAY6r4TlMy 31V5CbhImfy9RaUwp2oz6 8pLZsl7I6rCS6 U9QcKDEwuyuboYViePjdD X3mAOTojtjkZWAycD3gCY AdH3y9YaOlVwM5ESpzG9H iplS0EYLruJNe UJzcKJF1E75ov6T7XAJxA PMsRGO9oRL4oF7tgJpotc ogbGVmdDsgdmVydGljYWw hFZayS087WOUq lZakYZDhcV7aWATxbXRni ZjfXR6pTBSqcbocXzZYT4 nMXvfcVpUITN5JYPfaPYo vdGQ+PHRkIHN0 tUmsFMnvDABplM8nHKTyD 1e5ByErLvU5NDboP8NqYF DlelovZt51tS4vKtKjJbQ 3XAyoP4IcwtI0 CXHsjTXeKTezPNO7X12ly 3Q0CUNtMGFbEUK5nQD5lN 1hbGlnbjogbGVmdDsgdmV ydGljYWwtYWxp J138PRKavVzzNsV5MtJbR yU3LNx8N3OmVxd4NQCvbO kvIH5lnJGbAIvfVb8kdVi htValEH4qBDUs hppaUMWyxZ0yQXJlwDPmr ZjtZB3eNVOksinme729Al RwXQN3QPMxmXMaY5BvhB8 yOiAjMDAwMDAw Y8HjyVXkGZmjY981PCifA aG0IYOcoaRzZ3HbCAMddO biQmJ9q4Q1Yz4lIiBCGJB yczwvdGQ+PHRk ZNS0rXwaQEjdVCLnfP0zF CWoP7o0SrDjXbJ0WOrjA9 WyNKUkjqdoRk01jL5dNyC aNmT1BYstY4Kn fdB4MSIccSIvOHajEOU9Z 91sz8D2SQTzUKJmKHY9qY E9bW3mwWbibmvkmIXzdJj gdmVydGljYWwt ZVsmD630CZYgyQoiKp3iv XB8O0UtHvm6BUQbfHsdYA 8juYXlEZgmGj5syYezxHk lAY3nBIOvscsq DGGwkD5vWEZdmTAgvNesB M6dQFUjwikne256TqBjBR E8QDVtsWAuD9WjeN6dVuI lZLJuYRHhB4Cw cJPeVThaD151VPaiSvQ9A UCvtrVkC3UcGKYfxUqdUt R4s9P0As9QtRKoX7OoI6e 0G8XhNwubyME+ NW45BNXpHY17xAEraCNdj 6jhwXq7ByGgCRAfURX1xA grKXahi0RyXPYrZ47hdSQ uw4O5OWXljRvx eYMwCbZddMR6gH4sEWkqn ejmm3cmrxcrRipms0gmdb 00zW79T20yPFwsCACcWJU zMCUiIHZhbGln ed9oiP1uXw6+CFKpcXR9a YR1gF9sDxMiSxK9ARkfG0 95OdAdkFJcZhwxe1ohl7k xnOp6PmWxWEDj xkDtpReqOLK1v5AuMj81K 29sIHdpZHRoPSIyMCUiIH EmvQioja4gnV0pNe2+PC9 da5demx37sL43 dHI+KMZdXWX2eRkhIZlfI GNioO6uNZjtCwT3TGIjNl IgbG04pHVzYIjfZg6soEn aiNfeES8hZNNb sowbi564IyMzk6neARMmn BPiOHlrXUA4L87pk6D9OR IiLRDkFPH4dKB9uF4zyDh nbjogbGVmdDsg gyEmiMgoJEogVOqcO585U PDdjKxfMsIjbOOgN7jndu PYPH5sGjqghBX+PHRkIHN 0eWxlPSdwYWRk eZ4tOKCbH4p1DuFeOoI7A KzbL4FehnL4EUMbjXRoWL HqbDSAcF0efedpp7lxjzl gIzAwMDAwMDt0 BRa2AKImfHroNiVfKZP5Q zM1HYK5uWQbyS8dtIyias dwaS9pKjs+RklOOjwvdGQ +JCSuXXH7dEir BRicQSJprN6pEAXzJ4c0Z vVbQeD2WTxdK8VtbcT2CR FfdYWlGAXrnREIeN6kihp dv1mygbknPvYf LXScTMk1TXp1EGCinYdrY wIpJDY1OjF0MVZ0rAMsnY 2dyJpybqmifM5bMuv+TVJ OOjwvdGQ+PHRk KLM5iHssGEvdRUJbxZ0fL CSpI5h9GpYkNqC5ZAkkY0 MnuuA6WXGeiYLjITQzqMQ RhV1trvojt4vp mxjfDsHtMOPqZNj8EXt5S YWqeYocCyMySZM1OzT9BT N3tMNqiN5kuVrpnzzzlT2 wOyc+DQK8TWZ2 LS45RX05S3JyTkvfsRCwz +PHRhYmxlIHdpZHRoPS dfPUYhVoKzuFkcAI4nHf8 yZGVyLWNvbGxh cHNl (more content not included)... Normal [facility] CT Maxillofacial w/o Contras ton 07-08-2021 CT [...] DO Transcribed by: PAULA Technologist: ANDERSON Normal [facility] Consent for Treatmenton 06-26 Consent for Treatment [id number] .00CD:127 [facility] Discharge Instructionson Discharge Instructions [id number] .00CD:127 Normal [facility] ED Clinical Summaryon 2020 ED Clinical Summary [address] [address] ED Clinical Summary Person Information Name: BRAULIO COMBS Shayla/[facility] Age: 30 Years : 1990 Sex: Male Language: Kittitian PCP: Al Haines MD Marital Status: Single [...] 07/08/2021 01:45:27 07/08/2021 01:45:27 07/08/2021 01:45:27 ADDRESS: [address] [place] [id number] PHYS DOC NOTES: MEDICAL INFORMATION: Prescriptions Given: New Medications Printed Prescriptions amoxicillin-clavulana te (Augmentin 875 mg-125 mg Tab) 1 Tablets By Mouth every 12 hours for 10 Days. Refills: 0. PATIENT EDUCATION INFORMATION: Instructions: Facial Laceration Follow up: With: Address: When: Al Haines [address] [place] [address], [facility] [place] [address] Business (1) In 3 days 07/11/2021 Comments: have wound rechecked in 2-3 days and stitches removed in 5-6 days DIAGNOSIS: 1:Facial laceration; 2:Facial contusion Normal [facility] ED Note-Nursingon 07-08-2021 ED Note-Nursing Pt out of room for imaging. Normal [facility] ED Note-Physicianon 07-08-20 ED Note-Physician Basic Information [...] Diagnostic Results No qualifying data available. Normal [facility] Comment on above: Result Comment: Elec tronically [...] Pus or a bad smell. ? Take dqjp-mek-puovunz and prescription medicines only as told by your health care provider. ? If you were prescribed an antibiotic, take or apply it as told by your health care provider. Do not stop using the antibiotic even if your condition improves. ? After the laceration has healed: ? Know mary jo (more content not included)... Normal [facility] ED Patient Summaryon 021 ED Patient Summary [address] [address] Patient Discharge Instructions Person Information Name: GARRETBRAULIO FELIZ Elizabeth Age: 30 Years Arrival Date: 07/07/2021 23:27:57 Discharge Diagnosis: 1:Facial laceration; 2:Facial contusion Primary Care Physician: Al Haines MD Provider Information Primary Provider: Ernesto Abrams MD [employer] Mechanic:None The exam and treatment you received in the Emergency Department were for an urgent problem and are not intended as complete care. It is important that you follow up with a doctor, nurse practitioner, or physician?s psychiatric assistant for ongoing care. If your symptoms become worse or you do not improve as expected and you are unable to reach your usual health care provider, you should return to the Emergency Department. We are available 24 hours a day. BRAULIO COMBS has been given the following list of patient education materials, prescriptions and follow-up instructions: Follow-up Instructions: With: Address: When: Al Haines [facility], [place] [address] Business (1) In 3 days [...] opioids can be used to help relieve epfssdvm-to-ewubly pain and are often prescribed following a [...] be struggling with addiction, tell your health manager care management and ask fo (more content not included)... Normal [facility] ED Traumaon 07-08-2021 ED Trauma [id number] 1.00CD:127 Normal [facility] RAD - Preliminary Cat Scan R eporton 07-08-2021 RAD - Preliminary Cat Scan Report [id number] .00CD:127 Normal [facility] CT BRAIN WO CONTRASTon 04-15 CT BRAIN WO CONTRAST [facility] Department of Radiology [address] [place] [id number] Patient Name: BRAULIO COMBS : 1990 Sex: M Age: Race: White Pt. Location: Patient Status: O Ordered Date: 03/05/2019 1:15:00 PM Completed Date: 04/15/2019 12:39 PM Requesting Provider: ARGENTINA YO Attending Provider: ARGENTINA YO Report Copy To: UNKNOWN, PHYSICIAN Signs & Symptoms: S06.4X0D Epidural hemorrhage w/o loss of consciousness, subs encntr I10 History: Keli TEAGUE [phone] VALID 03/25/19-06/23/2019 [id number] JY PER FAX Comments: follow up EDH, [...] Electronically signed by:Luis Alberto Onofre. Transcribed by: [email or web address], User Resident: Electronically Signed by: LUIS ALBERTO ONOFRE @ 04/15/2019 01:58 PM Normal [facility] Comment on above: Order Comment: johanne w up ED, [facility] CT BRAIN WO CONTRASTon 03-05 CT BRAIN WO CONTRAST [facility] Department of Radiology [address] [place] [id number] Patient Name: BRAULIO COMBS : 1990 Sex: M Age: Race: White Pt. Location: [id number] Patient Status: O Ordered Date: 03/05/2019 8:30:00 [...] Electronically signed by:Luis Alberto Onofre. Transcribed by: [email or web address], User Resident: MIRELA RAMOS Electronically Signed by: LUIS ALBERTO ONOFRE @ 03/05/2019 09:58 AM I personally read this/these film(s) with this resident Normal [facility] Comment on above: Order Comment: Progr ession of Known Bleed History and Physicalon 03-05 History and Physical MR#: [id number] [facility] Pt. Name: Braulio Combs Admitted: 03/04/2019 Date of : 1990 Attending Physician: Josh Reynoso MD Room #: [id number] Discharge Date: HISTORY AND PHYSICAL SERVICE: Trauma [...] epidural hematoma/subdural hematoma. He was sent to [facility] for neurosurgical evaluation. The patient currently denies [...] Leigh MD Date Trans: 03/05/2019 05:24 A/durga [id number] Normal [facility] BASIC METABOLIC PANELon 04-0 Calcium [Mass/Vol] 9.7 mg/dL Normal 8.6-10.3 [facility] Comment on above: Order Comment: if no t done in ED No: Do not add to previous draw Performed By: #### 0 0071, 81154 #### [facility] [address] [place] [address], [place] Chloride [Moles/Vol] 96 mmol/L Low 98-107 [facility] Comment on above: Order Comment: if no t done in ED No: Do not add to previous draw Performed By: #### 0 0071, 61768 #### [facility] [address] [place] [address], [place] CO2 [Moles/Vol] 30 mmol/L Normal 21-31 [facility] Comment on above: Order Comment: if no t done in ED No: Do not add to previous draw Performed By: #### 0 0071, 95549 #### [facility] [address] [place] [address], [place] Creatinine [Mass/Vol] 0.93 mg/dL Normal 0.70-1.30 [facility] Comment on above: Order Comment: if no t done in ED No: Do not add to previous draw Performed By: #### 0 0071, 94984 #### [facility] [address] [place] [address], [place] GFR/1.73 sq M predicted among blacks MDRD (S/P/Bld) [Vol rate/Area] mL/min/{1.73_m2} Normal >60 [facility] Comment on above: Order Comment: if no t done in ED No: Do not add to previous draw Performed By: #### 0 0071, 12528 #### [facility] [address] [place] [address], [place] GFR/1.73 sq M predicted among non-blacks MDRD (S/P/Bld) [Vol rate/Area] mL/min/{1.73_m2} Normal >60 [facility] Comment on above: Order Comment: if no t done in ED No: Do not add to previous draw Performed By: #### 0 0071, 95333 #### [facility] [address] [place] [address], [facility] Glucose [Mass/Vol] 106 mg/dL High 70-100 [facility] Comment on above: Order Comment: if no t done in ED No: Do not add to previous draw Performed By: #### 0 0071, 46829 #### [facility] [address] [place] [address], [place] Potassium [Moles/Vol] 4.5 mmol/L Normal 3.5-5.1 [facility] Comment on above: Order Comment: if no t done in ED No: Do not add to previous draw Performed By: #### 0 0071, 65171 #### [facility] [address] [place] [address], [facility] Sodium [Moles/Vol] 134 mmol/L Low 136-145 [facility] Comment on above: Order Comment: if no t done in ED No: Do not add to previous draw Performed By: #### 0 0071, 09304 #### [facility] [address] [place] [address], [facility] Urea nitrogen [Mass/Vol] 18 mg/dL Normal 7-25 [facility] Comment on above: Order Comment: if no t done in ED No: Do not add to previous draw Performed By: #### 0 0071, 92938 #### [facility] [address] [place] [address], [facility] CBC COMPLETE BLOOD COUNTon 0 - Erythrocyte distribution width (RBC) [Ratio] 14.1 % Normal 11.5-15.0 [facility] Comment on above: Order Comment: if no t done in ED No: Do not add to previous draw Performed By: #### 5 0608 #### [facility] [address] [place] [address], [facility] Hematocrit (Bld) [Volume fraction] 43.2 % Normal 39.0-50.0 [facility] Comment on above: Order Comment: if no t done in ED No: Do not add to previous draw Performed By: #### 5 0608 #### [facility] [address] [place] [address], [facility] Hemoglobin (Bld) [Mass/Vol] 15.1 g/dL Normal 13.0-17.0 [facility] Comment on above: Order Comment: if no t done in ED No: Do not add to previous draw Performed By: #### 5 0608 #### [facility] [address] [place] [address], [facility] MCH (RBC) [Entitic mass] 32.4 pg Normal 27.0-33.0 [facility] Comment on above: Order Comment: if no t done in ED No: Do not add to previous draw Performed By: #### 5 0608 #### [facility] [address] [place] [address], [facility] MCHC (RBC) [Mass/Vol] 35.0 g/dL Normal 32.0-35.0 [facility] Comment on above: Order Comment: if no t done in ED No: Do not add to previous draw Performed By: #### 5 0608 #### [facility] [address] [facility] [place] [address], [facility] MCV (RBC) [Entitic vol] 92.7 fL Normal 82.0-98.0 [facility] Comment on above: Order Comment: if no t done in ED No: Do not add to previous draw Performed By: #### 5 0608 #### [facility] [address] [place] [address], [facility] Nucleated RBC/100 WBC (Bld) [Ratio] 0 % Normal 0-0 [facility] Comment on above: Order Comment: if no t done in ED No: Do not add to previous draw Performed By: #### 5 0608 #### [facility] [address] [place] [address], [facility] PLAT CNT 364 10*3/uL Normal 150-[address] [facility] Comment on above: Order Comment: if no t done in ED No: Do not add to previous draw Performed By: #### 5 0608 #### [facility] [address] [place] [address], [facility] RBC (Bld) [#/Vol] 4.66 10*6/uL Normal 4.20-5.70 [facility] Comment on above: Order Comment: if no t done in ED No: Do not add to previous draw Performed By: #### 5 0608 #### [facility] [address] [place] [address], [facility] WBC (Bld) [#/Vol] 9.76 10*3/uL Normal 4.00-10.60 [facility] Comment on above: Order Comment: if no t done in ED No: Do not add to previous draw Performed By: #### 5 0608 #### [facility] [address] MAGNESIUM BLOODon 03-04-2019 Magnesium [Mass/Vol] 2.4 mg/dL Normal 1.9-2.7 [facility] Comment on above: Order Comment: if no t done in ED No: Do not add to previous draw Performed By: #### 0 0071, 43069 #### [facility] [address] Encounters Encounter Date Encounter Type Care Provider Facility Start: 02-22-2023 End: 02-22-[address] NONE LISTED REQUEST Facility: Start: 03-04-2019 End: 03-06-2019 Evaluation and management of inpatient REFERRED SELF Facility:[facility] Payers Date Payer Category Payer Unknown [id number] 1990 Unknown [id number] 1961 Medicaid [id number] Summary Purpose Family History No Family History Records FoundNo Family History Records FoundNo Family History Records Found Advance Directives No Advanced Directives Records FoundNo Advanced Directives Records FoundNo Advanced Directives Records Found Hospital Course Note MR#: [id number] [facility] Pt. Name: Braulio Combs Admitted: 03/04/2019 [...] afternoon on Sunday and was seen in [facility] due to a severe headache. At [facility], he had a 3D CT C-spine without contrast and also a CT brain without contrast and was thus transferred to [facility] for higher level of care. Upon admission to [facility], he had a repeat CT brain without contrast and wa (more content not included)... Additional Source Comments (unrecognized sect ion and content) No Status Records FoundNo Status Records FoundNo Status Records Found INFORMATION SOURCE (unrecogn ized section and content) DATE CREATED AUTHOR 07/31/2019 [facility] [place] DATE CREATED AUTHOR AUTHOR'S ORGANIZ ATION 07/15/2021 [facility] DATE CREATED AUTHOR AUTHOR'S ORGANIZ ATION 02/27/2023 [facility] FOR RECORDS PERTAINING TO PATIENTS WHO ARE [...] BE BASED ON THE PRIMARY CLINICAL RECORDS. [facility] [employer] [facility]. provides no warranty or guarantee of the accuracy or completeness of information in this document.
[2023-12-08] MEDS: DIPHENHYDRAMINE HCL 50 MG/ML (1ML) VIAL 25 MG IV (08:51)
[2023-12-08] MEDS: 0.9 % SODIUM CHLORIDE 1,000 ML 1000 ML IV (08:51)
[2023-12-08] MEDS: FAMOTIDINE/PF 20 MG/2 ML VIAL IV (08:55)
[2023-12-08] MEDS: lidocaine HCL 15 ML, MAG HYDROX/ALUMINUM HYD/SIMETH 30 ML, HYOSCYAMINE SULFATE 0.25 MG PO (08:56)
[2023-12-08 09:13] VITALS: BP 122/85; PULSE 88; RESP 18; O2SAT 100
--- NOTE | 2023-12-08 09:22 | ED.ABDPAIN1 ---
HPI - Abdominal Pain General Chief Complaint: Abdominal Pain Stated Complaint: abdominal pain Time Seen by Provider: 12/08/23 08:23 Source: patient Mode of arrival: walk-in Limitations: no limitations History of Present Illness HPI narrative: Patient be evaluated today for the same complaint that he had yesterday epigastric discomfort associated with nausea and vomiting, the patient seemed that he just went home slept and started having some nausea and vomiting came back he did not use the medication that he was provided with here because he said that it does not work anyway. The patient denies any diarrhea he did vomit before arrival. The patient mentioned that hot showers make him feel better. And he denies any use of marijuana over the last few days but he had in the past Related Data Previous Rx's Medication Instructions Recorded famotidine 20 mg tablet (Pepcid) 20 mg PO BID #14 tabs 12/08/23 promethazine 25 mg tablet 25 mg PO TID PRN nausea and 12/08/23 vomiting #10 tabs Allergies Allergy/AdvReac Type Severity Reaction Status Date / Time Iodinated Contrast Media Allergy Unknown Verified 12/07/23 11:56 Review of Systems ROS Status of ROS 10 or more systems reviewed and unremarkable except as noted in history and below [facility] Social History Smoking status: Current every day smoker Exam Narrative Exam Narrative: Nurses notes and vital signs reviewed and patient is not hypoxic. General: Well-appearing and in no apparent distress. Skin: Warm, dry, no pallor noted. No rash. Head: Normocephalic, atraumatic. Neck: Supple, non-tender. Eye: Pupils are equal, round and EOMI. No scleral icterus. Ears, Nose, Mouth, and Throat: TM are clear, no nasal mucosal hypertrophy. Oral mucosa is moist, no posterior oropharynx erythema, uvula is mid-line Cardiovascular: Regular Rate and Rhythm without murmur, gallop or rub. Respiratory: No accessory muscle use or respiratory distress. Lungs are clear to auscultation, no wheezing, rales or rhonchi Chest Wall: no tenderness Back: No midline thoracic or lumbar vertebral tenderness. No CVA tenderness Musculoskeletal: normal ROM, no calf or popliteal tenderness, no lower extremity edema/swelling GI: Abdomen is soft, non-distended. Normal bowel sounds. No masses appreciated. No tenderness to palpation. No rebound, guarding, or rigidity noted. Neurological: A&O x4. No cranial nerve dysfunction observed. No truncal ataxia. Moves all extremities. Sensation intact. Psychiatric: Cooperative and interactive. Normal mood and affect. Constitutional Vital Signs, click to edit/add: Last Vital Signs Temp 98.4 F 12/08/23 08:26 Pulse 88 12/08/23 09:13 Resp 18 12/08/23 09:13 BP 122/85 12/08/23 09:13 Pulse Ox 100 12/08/23 09:13 Course Vital Signs Vital signs: Vital Signs Temperature 98.4 F 12/08/23 08:26 Pulse Rate 86 12/08/23 08:26 Respiratory Rate 18 12/08/23 08:26 Blood Pressure 153/105 H 12/08/23 08:26 Pulse Oximetry 99 12/08/23 08:26 Temperature 98.4 F 12/08/23 08:26 Pulse Rate 88 12/08/23 09:13 Respiratory Rate 18 12/08/23 09:13 Blood Pressure 122/85 12/08/23 09:13 Pulse Oximetry 100 12/08/23 09:13 MDM - Abdominal Pain MDM Narrative Medical decision making narrative: The patient had a benign abdominal examination here his presentation is could be secondary to gastritis or cyclic vomiting or gastro enteritis right now he was provided with Benadryl as well as Pepcid he was discharged home with Pepcid as well as Phenergan was referred to his primary care as outpatient. The patient is to follow up with primary care physician in next 2-3 days or to return to the emergency department should any of the signs or symptoms worsen or new symptoms develop. The patient agrees with the following Diagnosis and Treatment plan and the patient will be discharged home. Discharge Plan Discharge Chief Complaint: Abdominal Pain Clinical Impression: Gastroenteritis Gastritis Qualifiers: Gastritis type: unspecified gastritis Chronicity: unspecified Gastritis bleeding: without bleeding Qualified Code(s): K29.70 - Gastritis, unspecified, without bleeding Patient Disposition: Home, Self-Care Time of Disposition Decision: 09:03 Condition: Good Prescriptions / Home Meds: New famotidine [Pepcid] 20 mg tablet 20 mg PO BID Qty: 14 0RF promethazine 25 mg tablet 25 mg PO TID PRN (Reason: nausea and vomiting) Qty: 10 0RF Instructions: Gastritis (DC), Acute Nausea and Vomiting (DC) Stand Alone Forms: Portal Instructions Referrals: Physician,Non-Staff, MD [Primary Care Provider] - 1 week Shaikh Lockwood MD [Physician] - 1 week
== END 2023-12-08 09:35 | disposition home or self-care (01) ==
PROVIDERS: Emergency Provider Emergency Medicine
DX: K52.9 Noninfective gastroenteritis and colitis, unspecified (principal); F17.210 Nicotine dependence, cigarettes, uncomplicated
CPT/HCPCS: 96361; 96374; 96375; 99284; J1200

== ENCOUNTER 2024-06-24 14:29 | Emergency (ER) | payer OTHER, SELFPAY ==
[2024-06-24 14:31] VITALS: BP 154/94; PULSE 122; TEMP 36.8; O2SAT 97; BMI 23.8
[2024-06-24 14:33] VITALS: PULSE 114; O2SAT 97
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
[2024-06-24 14:40] VITALS: PULSE 117; O2SAT 99
[2024-06-24 14:50] VITALS: PULSE 113; O2SAT 99
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
--- NOTE | 2024-06-24 15:13 | CT_ITS ---
The [address] [address] Patient Name: ELIER COMBS MRN: [id number] date: 1990 Sex: M Assigned Patient Location: ER Current Patient Location: ER Accession/Order Number: [id number] Exam Date: 06/24/2024 15:25 Report Date: 06/24/2024 15:46 At the request of: TREVON DURON Procedure: CT facial bones wo con EXAM: Facial bones CT without contrast. Dose reduction technique used: Automated exposure control and/or adjustment of the mA and/or kV according to patient size and/or use of iterative reconstruction technique. REASON FOR EXAM: injury COMPARISON: None FINDINGS: Acute bilateral anterior nasal bone displaced fractures. Small ununited calcifications along the anterior maxillary spine. No other acute facial bone or paranasal sinus fractures. Bilateral orbits are intact. No mandible fracture or dislocation. Bilateral globes are grossly intact. No orbital hematoma or inflammatory changes. Small bilateral maxillary sinus mucus retention cysts. Paranasal sinuses and mastoid air cells are otherwise clear. Remainder unremarkable. CT/CT facial bones wo con IMPRESSION: 1. Acute bilateral anterior nasal bone displaced fractures. 2. Possible fractures of the anterior maxillary spine versus normal variant of ossification. Electronically authenticated by: BRENNA RICKS Date: 06/24/2024 15:46
[2024-06-24] MEDS: CEPHALEXIN 500 MG CAPSULE PO (16:02)
[2024-06-24 16:06] VITALS: BP 128/88; PULSE 76; O2SAT 98
[2024-06-24 16:07] VITALS: O2SAT 98
== END 2024-06-24 16:12 ==
PROVIDERS: Emergency Provider Emergency Medicine Emergency Medical Services
DX: S02.2XXA Fracture of nasal bones, initial encounter for closed fracture (principal); V19.9XXA Pedal cyclist (driver) (passenger) injured in unspecified traffic accident, initial encounter; F17.210 Nicotine dependence, cigarettes, uncomplicated
CPT/HCPCS: 70486; 99284

== ENCOUNTER 2025-02-10 13:01 | Emergency (ER) | payer OTHER, SELFPAY ==
[2025-02-10] VITALS (44 sets, daily range): BP systolic 81–128; BP diastolic 49–97; PULSE 48–123; O2SAT 88–100; BMI 21.9
[2025-02-10] MEDS: DIPHENHYDRAMINE HCL 50 MG/ML VIAL 25 MG IVP (13:13)
[2025-02-10] MEDS: HALOPERIDOL LACTATE 5 MG/ML VIAL IV (13:13)
[2025-02-10] MEDS: LORAZEPAM 2 MG/ML VIAL 1 MG IV (13:13)
[2025-02-10 13:15] LABS: Basophils Absolute Auto 0.1 10^3/uL (0.0-0.1); Basophils Percent Auto 1.1 % (0.2-2.0); Eosinophils Absolute Auto 0.2 10^3/uL (0.0-0.7); Eosinophils Percent Auto 2.7 % (0.9-7.0); Hematocrit 41.2 % (42.0-54.0); Hemoglobin 14.5 g/dL (14.0-18.0); Immature Granulocytes Abs Auto 0.01 10^3/uL (0.00-0.03); Immature Granulocytes Pct Auto 0.2 % (0.0-0.5); Lymphocytes Absolute Auto 1.9 10^3/uL (1.2-3.8); Lymphocytes Percent Auto 28.7 % (20.5-60.0); Mean Corpuscular HGB Conc 35.2 g/dL (29.9-35.2); Mean Corpuscular Hemoglobin 31.9 pg (25.9-34.0); Mean Corpuscular Volume 90.7 fL (80.0-94.0); Mean Platelet Volume 10.1 fL (9.5-13.5); Monocytes Absolute Auto 0.6 10^3/uL (0.3-0.8); Monocytes Percent Auto 9.3 % (1.7-12.0); Neutrophils Absolute Auto 3.8 10^3/uL (1.4-6.5); Platelet Count 501 10^3/uL (150-450); Red Blood Count 4.54 10^6/uL (4.70-6.10); Red Cell Distribution Width 12.4 % (11.0-15.0); White Blood Count 6.6 10^3/uL (4.0-11.0)
--- NOTE | 2025-02-10 13:17 | ED.OVERDOSE1 ---
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 Related Data Previous Rx's ?Medication ?Instructions ?Recorded famotidine 20 mg tablet (Pepcid) 20 mg PO BID #14 tabs 12/08/23 promethazine 25 mg tablet 25 mg PO TID PRN nausea and 12/08/23 vomiting #10 tabs Allergies Allergy/AdvReac Type Severity Reaction Status Date / Time Iodinated Contrast Media Allergy Unknown Verified 12/07/23 11:56 Opioid HPI Opioid Management Most Recent Opioid Data: Last Pain Scale 10 12/07/23 12:10 12/07/23 PFSH PFSH Social History Smoking status: Current every day smoker Little interest or pleasure in doing things: not at all Feeling down, depressed, or hopeless: not at all Exam Constitutional Vital Signs, click to edit/add: Last Vital Signs Pulse 49 L 02/10/25 18:00 Resp 15 02/10/25 18:00 BP 113/74 02/10/25 18:00 Pulse Ox 99 02/10/25 15:45 O2 Del Method Nasal Cannula 02/10/25 13:24 O2 Flow Rate 4 02/10/25 13:24 Course Vital Signs Vital signs: Vital Signs Pulse Rate 109 H 02/10/25 13:02 Respiratory Rate 22 H 02/10/25 13:02 Blood Pressure 128/97 H 02/10/25 13:02 Pulse Oximetry 99 02/10/25 13:02 Oxygen Delivery Method Room Air 02/10/25 13:02 Pulse Rate 49 L 02/10/25 18:00 Respiratory Rate 15 02/10/25 18:00 Blood Pressure 113/74 02/10/25 18:00 Pulse Oximetry 99 02/10/25 15:45 Oxygen Delivery Method Nasal Cannula 02/10/25 13:24 Oxygen Delivery Flow Rate 4 02/10/25 13:24 MDM - Overdose MDM Narrative Medical decision making narrative: EKG showing sinus tachycardia with a heart rate of [address] elevation or depression there is 1 PVC The patient CBC and chemistry showed no acute pathology His presentation is mostly secondary to meth use as he was just stimulated and just keep moving around in the bed. The police initially was available due to the fact that EMS called them for possible agitation The patient mother at the bedside did mention that she was trying to get him into treatment The patient presentation is mostly secondary to meth use and that why he was treated with ativan and benadryl in addition to haldol on arrival also 1 L of iV fluid given in ED Patient is being monitored while he is asleep waiting for him to wake up for reassessment Lab Data Labs: Lab Results 02/10/25 Range/Units 13:08 WBC 6.6 (4.0-11.0) 10^3/uL RBC 4.54 L (4.70-6.10) 10^6/uL Hgb 14.5 (14.0-18.0) g/dL Hct 41.2 L (42.0-54.0) % MCV 90.7 (80.0-94.0) fL MCH 31.9 (25.9-34.0) pg MCHC 35.2 (29.9-35.2) g/dL RDW 12.4 (11.0-15.0) % Plt Count 501 H (150-450) 10^3/uL MPV 10.1 (9.5-13.5) fL Neut % (Auto) 58.0 (43.0-75.0) % Lymph % (Auto) 28.7 (20.5-60.0) % Gentry % (Auto) 9.3 (1.7-12.0) % Eos % (Auto) 2.7 (0.9-7.0) % Baso % (Auto) 1.1 (0.2-2.0) % Neut # (Auto) 3.8 (1.4-6.5) 10^3/uL Lymph # (Auto) 1.9 (1.2-3.8) 10^3/uL Gentry # (Auto) 0.6 (0.3-0.8) 10^3/uL Eos # (Auto) 0.2 (0.0-0.7) 10^3/uL Baso # (Auto) 0.1 (0.0-0.1) 10^3/uL Abs Immat Gran (auto) 0.01 (0.00-0.03) 10^3/uL Imm/Tot Granulo (auto) 0.2 (0.0-0.5) % Sodium 139 (136-145) mmol/L Potassium 3.5 (3.5-5.1) mmol/L Chloride 103 (98-107) mmol/L Carbon Dioxide 26.4 (21.0-32.0) mmol/L Anion Gap 13.1 BUN 21.0 H (7.0-18.0) mg/dL Creatinine 1.04 (0.70-1.30) mg/dL Est GFR ( Amer) >60 (>=60 mL/min/1.73m^2) Est GFR (Non-Af Amer) >60 (>=60 mL/min/1.73m^2) BUN/Creatinine Ratio 20.2 Glucose 87 (74-106) mg/dL Calcium 9.3 (8.5-10.1) mg/dL Total Bilirubin 1.6 H (0.2-1.0) mg/dL AST 18 (15-37) U/L ALT 27 (16-63) U/L Alkaline Phosphatase 71 (46-116) U/L Total Protein 7.8 (6.4-8.2) g/dL Albumin 4.0 (3.4-5.0) g/dL Globulin 3.8 g/dL Albumin/Globulin Ratio 1.1 Ethanol Quant <3 mg/dL Discharge Plan Discharge Patient Disposition: Still a Patient
[2025-02-10 13:31] LABS: Alanine Aminotransferase 27 U/L (16-63); Albumin Globulin Ratio 1.1; Alkaline Phosphatase 71 U/L (46-116); Anion Gap 13.1; Aspartate Amino Transferase 18 U/L (15-37); BUN Creatinine Ratio 20.2; Bilirubin Total 1.6 mg/dL (0.2-1.0); Calcium 9.3 mg/dL (8.5-10.1); Carbon Dioxide 26.4 mmol/L (21.0-32.0); Chloride 103 mmol/L (98-107); Estimated GFR (African America >60 (>=60 mL/min/1.73m^2); Estimated GFR (Non-African Ame >60 (>=60 mL/min/1.73m^2); Ethanol <3 mg/dL; Globulin 3.8 g/dL; Glucose 87 mg/dL (74-106); Potassium 3.5 mmol/L (3.5-5.1); Sodium 139 mmol/L (136-145); Total Protein 7.8 g/dL (6.4-8.2)
--- NOTE | 2025-02-10 15:16 | ECG_ITS ---
The [facility] Test Date: 2025-02-10 Pat Name: ELIER COMBS Department: Room: - Gender: Male [employer]: : 1990 Requested By: [id number] Order Number: [id number] Eddy MD: CAROL SALGADO M.D. Measurements Intervals Shorter Rate: 109 P: 72 VT: 124 QRS: 78 QRSD: 78 T: 60 QT: 322 QTc: 386 Interpretive Statements 1120 Sinus tachycardia 1570 with occasional ventricular premature complexes [address] depression 6120 Possible right atrial enlargement 9150 abnormal ECG Compared to ECG 09/30/2019 16:05:13 Ventricular premature complex(es) now present ST (T wave) deviation now present Electronically Signed On 02-10-2025 19:06:27 EDT by CAROL SALGADO M.D.
[2025-02-10] MEDS: 0.9 % SODIUM CHLORIDE 1,000 ML 1000 ML IV (16:39)
== END 2025-02-10 19:12 | disposition home or self-care (01) ==
PROVIDERS: Emergency Provider Emergency Medicine
DX: F15.10 Other stimulant abuse, uncomplicated (principal); R45.1 Restlessness and agitation; Z87.820 Personal history of traumatic brain injury; F17.200 Nicotine dependence, unspecified, uncomplicated
CPT/HCPCS: 36415; 80053; 80307; 80320; 85025; 93005; 96374; 96375; 99285; J1200; J1630; J2060